=== PATIENT | male | born 1940 | race Caucasian/White ===

== ENCOUNTER → 2018-01-19 | Outpatient (CLI) | payer MEDICARE, OTHER ==
[2016-11-09 14:22] VITALS: BMI 32.7
[~2018-01-19] MED LIST: ACE3 PO; ASPI-1441 PO; ATOR40TA69 PO; BIS10S PR; CALC-734 PO; CALC-9; CHOL200074 PO; CYA1000 PO; DOCU-299 PO; EZET1TAB61 PO; GLUC-178 PO; INUL1TAB PO; IOPAMIDOL 76% 50 ML INFUS BTL 0 ML ONE; IOPAMIDOL 76% 50 ML INFUS BTL 50 ML ONE; IOPAMIDOL 76% 75 ML INFUS BTL 0 ML ONE; IOPAMIDOL 76% 75 ML INFUS BTL 75 ML ONE; KET10 PO; METO25TA91 PO; METOPROLOL PO; MULT-1 PO; MULT-768 PO; NAPR-1043 PO; NS 0.9% 25 ML BAG 50 ML ONE; NS(*) 0.9% 10 ML VIAL 10 ML ONE; OMEG-11 PO; OMEG-24 PO; PANT40TA65 PO; SUCR1TAB85 PO; TRAM-420 PO; [UNRECOGNIZED DRUG - CODE] MC
--- NOTE | 2018-01-19 11:37 | RADIOLOGY IMAGING REPORT ---
FACILITY: [facility] PATIENT NAME: Gregorio Velasquez : 1940 MR: [id number] V: [id number] EXAM DATE: ORDERING PHYSICIAN: EDITH GARCIA TECHNOLOGIST: Location: [facility] - [place] Patient: Gregorio Velasquez : 1940 Visit/Account:[id number] Date of Sevice: 01/19/2018 ABDOMEN/PELVIS W/WO CONTRAST HISTORY: Hematuria TECHNIQUE: Axial images acquired through the abdomen/pelvis both with and without IV contrast.. Jyothi nal and sagittal reformatting also performed. Dose Lowering Technique One of the following dose optimization techniques was utilized in the performance of this exam: Autom ated exposure control; adjustment of the mA and/or kV according to the patient's size; or use of an i terative reconstruction technique. Specific details can be referenced in the facility's radiology C T exam operational policy. CONTRAST: 125 mL Isovue-370 COMPARISON: November 08, 2016 FINDINGS: Visualized lung bases: Minimal atelectasis in the lung bases Hepatobiliary: Negative. Spleen: Negative. Adrenals: Negative. Pancreas: Negative. Kidneys ureters and bladder: Kidneys appear grossly unremarkable. The distalmost portion of the uret ers are not opacified with contrast. The bladder is not well-distended with contrast therefore not i deally evaluated. The bladder wall appears moderately thickened and irregularity Genitalia: Prostate gland is markedly enlarged impinging upon the floor the urinary bladder. Additi onal nodular area along the right paramedial floor the bladder could be related to a bladder mass jose angel christelle exophytic prostate nodule. Seminal vesicles appear very prominent GI: Negative. Vessels/spaces/nodes: Moderate calcification seen throughout the abdomen and pelvis. Bones/soft tissues: Postoperative changes from posterior lumbar interbody fusion at L4, L5 and S1 ap pears similar to the prior study. There are extensive spondylotic changes throughout the thoracolumb ar spine. Heterotopic bone is seen just lateral to the iliac crests right greater than left. . Bilateral inguinal hernias containing fat Additional findings: None pertinent. IMPRESSION: The bladder is not well distended with contrast therefore not ideally evaluated. There is moderate b ladder wall thickening and irregularity.. The prostate gland is markedly enlarged impinging upon the floor the bladder. An additional nodular area along the right paramedian floor the bladder could be related to a bladder mass versus exophytic prostate nodule. Seminal vesicles appear very prominent Moderate callus occasions throughout the abdomen and pelvis Extensive postoperative and spondylotic changes of the lumbar spine Bilateral inguinal hernias containing fat Report Dictated By: Ida Branch MD at 01/19/2018 11:23 AM Report E-Signed By: Ida Branch MD at 01/19/2018 11:34 AM ANGELITON:AMICIVN
== END ==
LOC: CT 00:56
PROVIDERS: ATTEND Urology
DX: N40.0 Benign prostatic hyperplasia without lower urinary tract symptoms (principal); Z98.890 Other specified postprocedural states; K40.20 Bilateral inguinal hernia, without obstruction or gangrene, not specified as recurrent
CPT/HCPCS: 74178; Q9967

== ENCOUNTER 2018-02-02 14:25 | Outpatient (RCR) | payer MEDICARE, OTHER ==
[2016-11-09 14:22] VITALS: Wt 122.0 kg
[2018-01-18 13:49] LABS: PLATELET COUNT, AUTOMATED 113 K/uL (150-450)
[~2018-02-02 14:25] MED LIST changes: -IOPAMIDOL 76% 50 ML INFUS BTL 0 ML ONE; -IOPAMIDOL 76% 50 ML INFUS BTL 50 ML ONE; -IOPAMIDOL 76% 75 ML INFUS BTL 0 ML ONE; -IOPAMIDOL 76% 75 ML INFUS BTL 75 ML ONE; -NS 0.9% 25 ML BAG 50 ML ONE; -NS(*) 0.9% 10 ML VIAL 10 ML ONE
[2018-02-02 14:34] VITALS: BP 133/72
[2018-02-02] MEDS ORDERED: lidocaine (14:45)
[2018-02-02 15:39] LABS: PLATELET COUNT, AUTOMATED 109 K/uL (150-450)
[2018-02-02] MEDS ORDERED: PANT40TA65 PO (16:13)
[2018-02-02] MEDS ORDERED: GABA-549 PO (16:13)
[2018-02-02] MEDS ORDERED: METR45CR9 TP (16:16)
--- NOTE | 2018-02-03 10:27 | ONCOLOGY FOLLOW UP NOTE ---
EVENT DATE: February 02, 2018 REASON FOR FOLLOWUP Biclonal gammopathy of undetermined significance. INTERIM HISTORY The patient returns to the clinic for a followup visit today. It has been some time, dating back to 2014, since he has been seen in this clinic. He was followed most recently by Dr. Karina Corral. 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 The patient has been under surveillance since that time and, per the record, his laboratory studies have been stable over time. The patient reports today that he is basically feeling at his baseline. He has no particular complaints with the exception of some ongoing fatigue and musculoskeletal aches and pains. He tends to be pretty stiff when he wakes up in the morning. With activity, this tends to improve. His appetite is pretty good and his weight has been stable. He tends to walk about an hour a day with his dog. He reports no fever. He has had no shortness of breath, chest pain or productive cough. His bowel and bladder habits have been fairly stable. He recently had followup labs drawn and he is here to review the results and reestablish himself in this clinic. 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 PAST MEDICAL HISTORY 1. Hypertension. 2. Hypercholesterolemia. 3. History of eosinophilic esophagitis. The patient has required esophageal stricture dilation in the past. 4. Chronic back pain. Per his report, he has undergone several back and neck surgeries. 5. History of duodenal ulcer and upper GI bleed, diagnosed in October 2016. 6. Biclonal gammopathy of undetermined significance, as above. CURRENT MEDICATIONS 1. Iron Sulfate. 2. Protonix. 3. Calcium/vitamin D supplement. 4. Tramadol p.r.n. 5. Lidocaine patch p.r.n. 6. Fiber gummies. 7. Vitamin B12. 8. Atorvastatin. 9. Toprol XL. 10. Glucosamine Chondroitin. 11. Baby aspirin daily. ALLERGIES No known drug allergies. SOCIAL HISTORY The patient is a [place]. He has a remote history of smoking, having quit in 1998. He occasionally drinks alcohol. There is no history of illicit drug use. FAMILY HISTORY There is a history of colon cancer in his father. PHYSICAL EXAMINATION VITAL SIGNS: Temperature 97.0, blood pressure 133/72, heart rate is 55, respirations 16, oxygen saturation is 91% on room air, weight is 122 kg. GENERAL: Alert and oriented x3, no apparent distress, sitting in exam room chair. He is quite interactive and pleasant. HEENT: Anicteric sclerae. NEUROLOGIC: Grossly nonfocal, although his gait is somewhat antalgic. Gait is stable. EXTREMITIES: No edema, clubbing or cyanosis. SKIN: Cursory, reveals no concerning rash or lesion. LABORATORY STUDIES Reviewed per the [facility] medical record. These include from January 18, 2018: Beta-2 microglobulin elevated at 2.9. SPEP reveals an M spike of 0.87 g/dL. Immunofixation pattern again reveals IgM kappa and additional faint band in IgG kappa. CBC reveals a white blood cell count of 8,200, hemoglobin 15.2, MCV 103.2, platelet count 113,000. Comprehensive metabolic panel is unremarkable with the exception of a slightly elevated total bilirubin of 1.4 and glucose of 119. IMAGING None today. ASSESSMENT AND PLAN Biclonal gammopathy of undetermined significance. I had a good visit with Mr. Velasquez today. Symptomatically, he appears to be doing pretty well, basically at his baseline. He has no new or focal symptoms to suggest the particular need for additional workup or invasive procedure to include bone marrow biopsy or skeletal survey. He does have chronic aches and pains, especially his back and neck, but these have not worsened. We spent a good deal of time today reviewing his labs. He has a normal serum calcium and his kidney function also is normal. He has a normal hemoglobin, although he is slightly macrocytic. This can be followed. He does have a somewhat worsened thrombocytopenia in comparison to prior values that I have been able to review. He has had no abnormal bruising or bleeding, however. I would not necessarily expect thrombocytopenia in association with his gammopathies. He had been drinking tonic water, historically, to help with muscle cramps. This seems to be less of a pattern recently. It is possible that he has developed some early myelodysplasia, but at this point I have not strongly recommended that he have a bone marrow biopsy performed. His counts will be monitored instead. We spent time discussing the meaning of the monoclonal IgM kappa and IgG kappa. The IgG spike is small in comparison to the IgM spike, but both are modest. He expectedly does not have any symptoms to suggest hyperviscosity. As an adjunct to the labs already performed, I have asked him to return to the lab to have a repeat CBC, CMP as well as serum viscosity level performed. He agrees to do. We moved on to discuss plan for followup. He had previously had plans to follow up annually here. He has missed a few visits, however. I have encouraged him to come back and see me in six months after repeat laboratory studies, to include all of the above. He agrees to do so. KRAIG
== END 2018-02-03 11:21 | disposition home or self-care (01) ==
LOC: ONC 14:25
PROVIDERS: ATTEND Internal Medicine Medical Oncology
DX: D47.2 Monoclonal gammopathy (principal); R53.83 Other fatigue; M79.1 Myalgia; Z87.891 Personal history of nicotine dependence
CPT/HCPCS: 36415; 82232; 83615; 83883; 84550; 85025; 85810; 86334; G0463; 82040; 82247; 82310; 82374; 82435; 82565; 82947; 84075; 84132; 84155; 84295; 84450; 84460; 84520; 99202

== ENCOUNTER 2018-08-11 15:57 | Outpatient (RCR) | payer MEDICARE, OTHER ==
[2016-11-09 14:22] VITALS: Wt 121.3 kg
[2018-08-03 10:32] VITALS: BP 145/93
[2018-08-03 10:42] VITALS: BP 130/84
[2018-08-03 10:52] LABS: PLATELET COUNT, AUTOMATED 96 K/uL (150-450)
[~2018-08-11 15:57] MED LIST changes: +GABA-549 PO; +METR45CR9 TP; +lidocaine
[2018-08-11 16:07] VITALS: BP 135/69
--- NOTE | 2018-08-11 21:19 | ONCOLOGY FOLLOW UP NOTE ---
EVENT DATE: August 11, 2018 REASON FOR FOLLOWUP 1. Biclonal gammopathy of undetermined significance. 2. Thrombocytopenia. INTERIM HISTORY Mr. Velasquez returns to clinic for a followup visit today. He is accompanied by his daughter. He reports that he wanted her to come in today because his family keeps asking him a lot of questions about his need for hematology followup. He continues to have some low back pain, but this has not changed. He otherwise feels pretty good. He reports no fevers, chills, or sweats. He has normal bowel and bladder habits. He has noticed no abnormal bleeding or bruising. His appetite is good. His weight has been stable. 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 PAST MEDICAL HISTORY 1. Hypertension. 2. Hypercholesterolemia. 3. History of eosinophilic esophagitis. The patient has required esophageal stricture dilation in the past. 4. Chronic back pain. Per his report, he has undergone several back and neck surgeries. 5. History of duodenal ulcer and upper GI bleed, diagnosed in October 2016. 6. Biclonal gammopathy of undetermined significance, as above. CURRENT MEDICATIONS 1. Iron sulfate. 2. Protonix. 3. Calcium/vitamin D supplement. 4. Tramadol p.r.n. 5. Lidocaine patch p.r.n. 6. Fiber gummies. 7. Vitamin B12. 8. Atorvastatin. 9. Toprol XL. 10. Glucosamine/chondroitin. 11. Baby aspirin daily. ALLERGIES No known drug allergies. SOCIAL HISTORY The patient is a [place] . He has a remote history of smoking, having quit in 1998. He occasionally drinks alcohol. There is no history of illicit drug use. FAMILY HISTORY There is a history of colon cancer in his father. VITAL SIGNS Temperature 97.3, blood pressure 135/69, heart rate is 59, respirations 16, oxygen saturation is 91% on room air. Weight is 121.3 kg. PHYSICAL EXAMINATION GENERAL: Patient is alert and oriented times three, no apparent distress, sitting in exam room chair. He is quite pleasant and interactive. HEENT: Anicteric sclerae. NEUROLOGIC: Grossly nonfocal, and his gait is normal. EXTREMITIES: No edema, clubbing, or cyanosis. SKIN: No concerning rash or lesion. LABORATORY STUDIES Reviewed per the [email or web address] record. ASSESSMENT AND PLAN Biclonal gammopathy of undetermined significance. I had a good visit with Mr. Velasquez and his daughter today. Symptomatically, he continues to do well with the exception of some ongoing and irritating low back pain. This has not worsened over time. We discussed the results of his recent followup labs. He continues to have a normal white blood cell count and hemoglobin. He remains macrocytic with an isolated thrombocytopenia that is relatively stable. His serum creatinine is normal, as is his serum calcium. His plasma cell dyscrasia studies show a very slight increase in his M-spike measurement, but stable quantitative immunoglobulins and serum free light chains. We spent some extra time today discussing his plasma cell dyscrasia and the need for ongoing monitoring for worsening. All questions were answered. I spent a total of 30 minutes of time face to face with the patient and his daughter today, and 25 minutes of this were spent in direct counseling and coordination of care. KRAIG
== END 2018-09-20 12:02 | disposition home or self-care (01) ==
LOC: ONC 15:57
PROVIDERS: ATTEND Internal Medicine Medical Oncology
DX: D47.2 Monoclonal gammopathy (principal); D69.6 Thrombocytopenia, unspecified; I10 Essential (primary) hypertension; E78.00 Pure hypercholesterolemia, unspecified; Z87.891 Personal history of nicotine dependence
CPT/HCPCS: 36415; 83883; 85025; 85810; 86334; G0463; 82040; 82247; 82310; 82374; 82435; 82565; 82947; 84075; 84132; 84155; 84295; 84450; 84460; 84520; 99212

== ENCOUNTER → 2018-12-27 | Outpatient (CLI) | payer MEDICARE, OTHER ==
[2016-11-09 14:22] VITALS: BMI 32.7
--- NOTE | 2018-12-27 16:42 | EKG ---
FACILITY: [facility] PATIENT NAME: RENY MICHAELS : [id number] MR: [id number] V: [id number] EXAM DATE: ORDERING PHYSICIAN: JUANITO ARSHAD TECHNOLOGIST: LUIS Joe Reason : I49.9 Blood Pressure : / mmHG Vent. Rate : 056 BPM Atrial Rate : 056 BPM P-R Int : 152 ms QRS Dur : 090 ms QT Int : 402 ms P-R-T Axes : 034 048 042 degrees QTc Int : 387 ms Sinus bradycardia with PACs Possible left atrial enlargement Nonspecific interventricular conduction delay Confirmed by CHARLEY BALTAZAR ([id number]) on 12/28/2018 3:29:02 AM Referred By: JEANCARLOS Confirmed By:CHARLEY BALTAZAR
== END ==
LOC: LAB 15:54
PROVIDERS: ATTEND Nurse Practitioner Family
DX: R00.1 Bradycardia, unspecified (principal); I51.7 Cardiomegaly; I49.3 Ventricular premature depolarization
CPT/HCPCS: 93005

== ENCOUNTER → 2019-03-01 | Outpatient (CLI) | payer MEDICARE, OTHER ==
[2016-11-09 14:22] VITALS: BMI 32.7
[2019-03-01 08:45] LABS: PLATELET COUNT, AUTOMATED 64 K/uL (150-450)
== END ==
LOC: LAB 08:09
PROVIDERS: ATTEND Surgery
DX: K92.2 Gastrointestinal hemorrhage, unspecified (principal)
CPT/HCPCS: 36415; 85025

== ENCOUNTER → 2019-03-22 | Outpatient (CLI) | payer MEDICARE, OTHER ==
[2016-11-09 14:22] VITALS: BMI 32.7
[~2019-03-22] MED LIST changes: +IOPAMIDOL 76% 100 ML INFUS BTL 100 ML ONE
--- NOTE | 2019-03-22 14:30 | RADIOLOGY IMAGING REPORT ---
FACILITY: [facility] - [place] PATIENT NAME: Gregorio Velasquez : 1940 MR: [id number] V: [id number] EXAM DATE: ORDERING PHYSICIAN: MOODY BROWNE TECHNOLOGIST: Location: [facility] - [place] Patient: Gregorio Velasquez : 1940 Visit/Account:[id number] Date of Sevice: 03/22/2019 CT CHEST ABDOMEN PELVIS W/CON HISTORY: Monoclonal gammopathy follow-up ADDITIONAL HISTORY: None. TECHNIQUE: Following administration of IV contrast axial images acquired through the chest abdomen a nd pelvis during the portal venous phase. Coronal and sagittal reformatting was also performed.Dose Lowering Technique One of the following dose optimization techniques was utilized in the performance of this exam: Autom ated exposure control; adjustment of the mA and/or kV according to the patient's size; or use of an i terative reconstruction technique. Specific details can be referenced in the facility's radiology C T exam operational policy. CONTRAST: 75 mL Isovue-370 COMPARISON: CT abdomen and pelvis January 19, 2018 FINDINGS: CHEST: Lungs/Pleura: There is a 2 mm calcified nodule medial right upper lobe best appreciated on image 78 of series 4. There is a 2 mm noncalcified nodule anterior aspect the right upper lobe best appreciated on image 13 5 There is a 2 mm noncalcified nodule posterior aspect right upper lobe best appreciated on image 200 Is a 3 mm calcified nodule posterior aspect right lower lobe best appreciated on image 222 Is a 2 mm noncalcified nodule posterior aspect right lower lobe best appreciated on image 258 2 mm noncalcified nodule posterior aspect left lower lobe best appreciated on image 236 Is a 3 mm calcified nodule posterior lateral left lower lobe best appreciated on image 192. This mild dependent changes in both lower lobes Mediastinum/lymph nodes: Negative. Heart/vessels: There is severe coronary artery calcifications Bones/soft tissues: There extensive spondylotic changes of the thoracic spine ABDOMEN AND PELVIS: Hepatobiliary: Negative. Spleen: Negative. Pancreas: Negative. Adrenals: Negative. Kidneys ureters and bladder : Kidneys appear grossly unremarkable. The bladder wall is moderately th ickened. The anterior left side the bladder dome enters a left inguinal hernia Genitalia: Prostate gland is enlarged impinging upon the floor the urinary bladder. Period the semin al vesicles appear prominent although similar to the prior study GI: Negative. Vessels/spaces/nodes: There extensive atherosclerotic calcifications throughout the abdominal aorta and branch vessels Bones/soft tissues: Postoperative changes of the lower lumbosacral spine again noted. Extensive spo ndylotic changes are seen throughout the thoracolumbar spine. Heterotopic bone just lateral to the i liac crests again seen, right greater than left There are bilateral inguinal hernias. The right inguinal hernia contains fat. The left inguinal her babita contains fat and bladder Additional findings: None pertinent. IMPRESSION: There are multiple calcified and noncalcified nodules throughout the lungs ranging up to 3 mm Severe coronary artery calcifications and additional severe calcifications in the abdomen and pelvis The bladder wall is moderately thickened. There is a left inguinal hernia containing fat and anterio r left-sided the bladder dome. The right inguinal hernia contains fat Additional chronic findings as described Report Dictated By: Ida Branch MD at 03/22/2019 12:21 PM Report E-Signed By: Ida Branch MD at 03/22/2019 2:21 PM WSN:[email or web address]
== END ==
LOC: CT 00:43
PROVIDERS: ATTEND Internal Medicine Medical Oncology
DX: R91.8 Other nonspecific abnormal finding of lung field (principal); I25.10 Atherosclerotic heart disease of native coronary artery without angina pectoris; R19.00 Intra-abdominal and pelvic swelling, mass and lump, unspecified site; K40.90 Unilateral inguinal hernia, without obstruction or gangrene, not specified as recurrent
CPT/HCPCS: 71260; 74177; Q9967